=== PATIENT | male | born 1965 | race Caucasian/White ===

== ENCOUNTER 2020-07-14 13:50 | Emergency (ER) | payer BC ==
[~2020-07-14] VITALS: Ht 180.3 cm; Wt 74.8 kg
--- NOTE | 2020-07-14 13:50 | NUR ---
Patient to ER bed 7 to gown for evaluation. Side rails up. Report given to BE Wilkinson
[2020-07-14 13:58] VITALS: BP_SYST 174
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
--- NOTE | 2020-07-14 14:05 | NUR ---
ER at bedside examining patient.
[2020-07-14] MEDS ORDERED: OXYCODONE/ACETAMINOPHEN 5-325 TABLET PO ONE (14:15)
[2020-07-14] MEDS ORDERED: IBUP-1969 PO (14:58)
[2020-07-14] MEDS ORDERED: DICL1TAB61 PO (15:39)
[2020-07-14 16:00] VITALS: BP_SYST 156
--- NOTE | 2020-07-14 16:01 | NUR ---
Patient given written and verbal discharge instructions and verbalizes understanding. ER MD discussed with patient the results and treatment provided. Patient in stable condition. ID arm band removed. Rx of Diclofenac given. Patient educated on pain management and to follow up with PMD. Pain Scale 3/10. Opportunity for questions provided and answered. Medication side effect fact sheet provided.
== END 2020-07-14 16:01 | disposition home or self-care (01) ==
LOC: SED 13:50
DX: S43.101A Unspecified dislocation of right acromioclavicular joint, initial encounter (principal); V29.9XXA Motorcycle rider (driver) (passenger) injured in unspecified traffic accident, initial encounter; Y93.89 Activity, other specified; Y92.89 Other specified places as the place of occurrence of the external cause; Y99.8 Other external cause status
CPT/HCPCS: 73030; 99283

== ENCOUNTER 2021-06-10 08:59 | Emergency (ER) | payer BC, SELFPAY ==
[~2021-06-10] VITALS: Ht 177.8 cm; Wt 72.6 kg
[~2021-06-10 08:59] MED LIST: DICL1TAB61 PO; IBUP-1969 PO
[2021-06-10 09:00] VITALS: BP_SYST 149
--- NOTE | 2021-06-10 09:00 | NUR ---
Patient to ER bed 4 to gown for evaluation. Side rails up. Report given to Steph.
--- NOTE | 2021-06-10 09:03 | NUR ---
ER at bedside examining patient.
[2021-06-10] MEDS ORDERED: LIDOCAINE 1% 10 MG/ML, 20 ML MDV INJ ONE (09:15)
[2021-06-10] MEDS ORDERED: DIPH-TET-PERTUS Vaccine 0.5 ML VIAL (ADACEL) I.M. ONE (09:15)
[2021-06-10] MEDS ORDERED: BACITRACIN 1 GM OINT TP ONE (09:15)
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
--- NOTE | 2021-06-10 09:40 | NUR ---
Suture setup at bedside for
--- NOTE | 2021-06-10 11:38 | NUR ---
lac tray at bedside and patient waiting. tetnus dip IM administered to patient and no reaction. will continue to monitor the patient.
[2021-06-10] MEDS ORDERED: IBUP-1971 PO (11:43)
[2021-06-10] MEDS ORDERED: HYDR-3917 PO (11:43)
[2021-06-10] MEDS ORDERED: HYDROcodone/ACETAMIN 10-325 MG TAB PO ONE (11:45)
[2021-06-10] MEDS ORDERED: IBUPROFEN 800 MG TABLET PO ONE (11:45)
[2021-06-10 12:25] VITALS: BP_SYST 100
--- NOTE | 2021-06-10 12:25 | NUR ---
Patient given written and verbal discharge instructions and verbalizes understanding. ER MD discussed with patient the results and treatment provided. Patient in stable condition. ID arm band removed. IV catheter removed intact and dressing applied, no active bleeding. Rx of given. Patient educated on pain management and to follow up with PMD. Pain Scale 0. Opportunity for questions provided and answered. Medication side effect fact sheet provided.
== END 2021-06-10 12:29 | disposition home or self-care (01) ==
LOC: SED 08:59
DX: S01.21XA Laceration without foreign body of nose, initial encounter (principal); S13.4XXA Sprain of ligaments of cervical spine, initial encounter; V18.4XXA Pedal cycle driver injured in noncollision transport accident in traffic accident, initial encounter; Y93.89 Activity, other specified; Y92.89 Other specified places as the place of occurrence of the external cause; Y99.8 Other external cause status
CPT/HCPCS: 12013; 70160; 70450; 72125; 76376; 90471; 90715; 99284; J2001

== ENCOUNTER 2022-01-29 07:52 | Emergency (ER) | payer BC ==
[~2022-01-29] VITALS: Ht 180.3 cm; Wt 74.8 kg
[~2022-01-29 07:52] MED LIST changes: +HYDR-3917 PO; +IBUP-1971 PO
[2022-01-29 07:55] VITALS: BP_SYST 142
--- NOTE | 2022-01-29 08:00 | NUR ---
Placed in room 6 . Placed on pearl glue drier, blood pressure machine and pulse oximeter. To gown for exam. Side rails up. Report given to BE LEYVA.
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
--- NOTE | 2022-01-29 08:08 | NUR ---
ER DR. MACK EXAMINING PT AT THE BEDSIDE
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
[2022-01-29] MEDS ORDERED: CEFAZOLIN 2 GM IVPB PREMIX 50 ML IV ONE (08:15)
[2022-01-29] MEDS ORDERED: ONDANSETRON HCL 4 MG/2 ML VIAL IVP ONE (08:15)
[2022-01-29] MEDS ORDERED: MORPHINE 4 MG INJ. 4 MG/ML VIAL IVP ONE ×2 (08:15→09:30)
[2022-01-29 08:36] LABS: BASOPHILS % (AUTO) 0.6 % (0.0-2.0); EOSINOPHILS % (AUTO) 0.6 % (0.0-4.0); HEMATOCRIT 45.8 % (36-54); LYMPHOCYTES # (AUTO) 1.2 K/uL (1.0-5.5); LYMPHOCYTES % (AUTO) 19.6 % (20.5-51.5); MEAN CORPUSCULAR VOLUME 92 fL (79.0-98.0); MONOCYTES # (AUTO) 0.5 K/uL (0.0-1.0); MONOCYTES % (AUTO) 7.5 % (1.7-9.3); NEUTROPHILS # (AUTO) 4.5 K/uL (1.8-7.7); NEUTROPHILS % (AUTO) 71.7 % (40.0-70.0); PLATELET COUNT (AUTO) 207 K/uL (130-430); RED BLOOD CELL COUNT(AUTO) 4.97 MIL/uL (4.2-6.2); RED CELL DISTRIBUTION WIDTH 13.2 % (9.0-15.0); WHITE BLOOD COUNT (AUTO) 6.3 K/uL (4.8-10.8)
[2022-01-29 09:14] LABS: CALCIUM 9.3 mg/dL (8.4-11.0); CREATININE 1.13 mg/dL (0.55-1.30)
[2022-01-29 09:20] LABS: ALBUMIN 4.1 g/dL (3.4-4.8); TOTAL BILIRUBIN 0.8 mg/dL (0.0-1.0)
[2022-01-29] MEDS ORDERED: KETOROLAC TROMETHAMINE 15 MG VIAL IVP ONE (09:45)
[2022-01-29] MEDS ORDERED: ACETAMINOPHEN 500 MG TABLET PO ONE (09:45)
[2022-01-29] MEDS ORDERED: BACITRACIN 1 GM OINT TP ONE (10:45)
--- NOTE | 2022-01-29 11:38 | NUR ---
Patient given written and verbal discharge instructions and verbalizes understanding. ER Dr. Lavinia SEARS discussed with patient the results and treatment provided. Patient in stable condition. ID arm band removed. IV catheter removed intact and dressing applied, no active bleeding. Patient educated on pain management and to follow up with PMD. Pain Scale 7/10. Opportunity for questions provided and answered. Medication side effect fact sheet provided.
== END 2022-01-29 11:51 | disposition home or self-care (01) ==
LOC: SED 07:52
DX: S50.812A Abrasion of left forearm, initial encounter (principal); S80.812A Abrasion, left lower leg, initial encounter; Z79.899 Other long term (current) drug therapy; V18.0XXA Pedal cycle driver injured in noncollision transport accident in nontraffic accident, initial encounter; Y93.89 Activity, other specified; Y92.89 Other specified places as the place of occurrence of the external cause; Y99.8 Other external cause status
CPT/HCPCS: 99285; 70450; 96365; 96375; 80053; 85025; 87040; 36415; 73090; 73552; 73564; 73590; 72125; 76376; J0690; J1885; J2405; J2270